=== PATIENT | female | born 1950 | race Caucasian/White ===

== ENCOUNTER 2018-04-09 13:06 | Inpatient (IN) | payer OTHER, MEDICAID ==
[~2018-04-09] VITALS: Ht 154.9 cm; Wt 71.9 kg
[2018-04-09 13:15] VITALS: Ht 154.9 cm; Wt 71.9 kg
[2018-04-09] MEDS ORDERED: ATORVASTATIN CA10 M1 PO (13:19)
[2018-04-09] MEDS ORDERED: TENORMIN50 MG PO (13:19)
[2018-04-09] MEDS ORDERED: LANTUS SOLOS100 U/M1 SQ (13:19)
[2018-04-09] MEDS ORDERED: GABAPENTIN100 M2 PO (13:19)
[2018-04-09] MEDS ORDERED: AMLODIPINE BESY10 M2 PO (13:20)
[2018-04-09] MEDS ORDERED: [UNRECOGNIZED DRUG - CODE] PO (13:20)
[2018-04-09 16:39] LABS: BASOPHIL % 0.4 % (0-2); PLATELET COUNT 357 x10^3mcL (130-400)
[2018-04-09 16:53] LABS: BILIRUBIN TOTAL 0.74 mg/dL (0.20-1.00); CALCIUM 8.8 mg/dL (8.5-10.1); POTASSIUM SERUM 5.2 mmol/L (3.5-5.1)
[2018-04-09 16:57] LABS: ALBUMIN 3.1 g/dL (3.4-5.0); CREATININE SERUM 7.4 mg/dL (0.6-1.0)
[2018-04-09 17:23] LABS: MAGNESIUM 2.5 mg/dL (1.8-2.4); PHOSPHOROUS 4.5 mg/dL (2.5-4.9)
[2018-04-09 17:37] LABS: T3 TOTAL 0.65 ng/mL
[2018-04-09 17:42] VITALS: BP 139/44
[2018-04-09 17:45] LABS: FREE T4 1.38 ng/dL (0.76-1.46); FREE THYROXINE INDEX 2.9 ug/dL (1.4-4.5); T4(THYROXINE) 7.7 ug/dL (4.7-13.3)
[2018-04-09 20:57] VITALS: BP 135/54
[2018-04-10 06:37] VITALS: BP 123/46
[2018-04-10 06:52] LABS: CALCIUM 8.8 mg/dL (8.5-10.1); CARBON DIOXIDE 24.9 mmol/L (21-32); MAGNESIUM 2.6 mg/dL (1.8-2.4); PHOSPHOROUS 5.8 mg/dL (2.5-4.9)
[2018-04-10 07:00] LABS: CREATININE SERUM 8.6 mg/dL (0.6-1.0); POTASSIUM SERUM 6.3 mmol/L (3.5-5.1)
[2018-04-10 08:31] LABS: BASOPHIL % 0.2 % (0-2); PLATELET COUNT 332 x10^3mcL (130-400); RED CELL DISTRIBUTION WIDTH 14.4 % (11.5-14.5)
[2018-04-10 08:42] VITALS: BP 126/45
[2018-04-10 11:35] VITALS: BP 132/45
[2018-04-10 17:20] VITALS: BP 135/39
[2018-04-10 21:07] VITALS: BP 145/48
[2018-04-11 05:49] VITALS: BP 133/44
[2018-04-11 06:14] LABS: BASOPHIL % 0.3 % (0-2); PLATELET COUNT 361 x10^3mcL (130-400)
[2018-04-11 06:33] LABS: CALCIUM 8.4 mg/dL (8.5-10.1); MAGNESIUM 2.2 mg/dL (1.8-2.4); PHOSPHOROUS 5.6 mg/dL (2.5-4.9); POTASSIUM SERUM 4.1 mmol/L (3.5-5.1)
[2018-04-11 06:34] LABS: CREATININE SERUM 6.9 mg/dL (0.6-1.0)
[2018-04-11 09:30] VITALS: BP 133/43
[2018-04-11 14:42] VITALS: BP 125/48
== END 2018-04-11 15:09 | disposition home or self-care (01) | DRG 562 ==
LOC: ED 13:06 → MU 16:05 → DU 16:05 → MU 17:29 → DU 19:40
PROVIDERS: Emergency Medicine; Internal Medicine; Neuromusculoskeletal Medicine, Sports Medicine
PROC: 2W3FX2Z Immobilization of Left Hand using Cast (ICD-10-PCS; principal; 2018-04-11 13:00)
DX: S52.502A Unspecified fracture of the lower end of left radius, initial encounter for closed fracture (principal); N18.6 End stage renal disease; N17.0 Acute kidney failure with tubular necrosis; E44.0 Moderate protein-calorie malnutrition; I12.0 Hypertensive chronic kidney disease with stage 5 chronic kidney disease or end stage renal disease; S52.615A Nondisplaced fracture of left ulna styloid process, initial encounter for closed fracture; E11.65 Type 2 diabetes mellitus with hyperglycemia; E11.22 Type 2 diabetes mellitus with diabetic chronic kidney disease; J44.9 Chronic obstructive pulmonary disease, unspecified; E87.5 Hyperkalemia; D63.1 Anemia in chronic kidney disease; I51.7 Cardiomegaly; I25.10 Atherosclerotic heart disease of native coronary artery without angina pectoris; Z95.0 Presence of cardiac pacemaker; Z79.4 Long term (current) use of insulin; Z68.29 Body mass index [BMI] 29.0-29.9, adult; W18.39XA Other fall on same level, initial encounter; Y93.89 Activity, other specified; Y92.012 Bathroom of single-family (private) house as the place of occurrence of the external cause
CPT/HCPCS: 82962; 83880; 84439; 97110-GP; 97535-GP; J0885-EC; J1885; J2270; J2550; Q0092; Q0162